=== PATIENT | female | born 1990 | race African-American/Black ===

== ENCOUNTER 2021-03-22 06:09 | Emergency (ER) | payer MEDICAID ==
[~2021-03-22] VITALS: Ht 167.6 cm; Wt 129.3 kg
--- NOTE | 2021-03-22 06:13 | NUR ---
Patient to ER bed 4 to gown for evaluation. Side rails up. Report given to BORIS PRIDE.
--- NOTE | 2021-03-22 06:16 | NUR ---
DR. MARINO AT BEDSIDE FOR EVALUATION.
[2021-03-22 06:19] VITALS: BP_SYST 129
--- NOTE | 2021-03-22 06:26 | NUR ---
PT ARRIVED TO ER WITH A COMPLAINT OF LEFT SIDED LUMPS ON HER BREAST. PT STATES SHE STARTED HAVING THEM ON 2020. WENT TO THE ER AND THEY SENT HER HOME WITH [facility] SAYING IT WILL GO AWAY. PT STARTED HAVING FLAREUPS AGAIN AND WANTS TO KNOW WHAT THEY ARE. 11/07 PAIN. A&OX4
[2021-03-22 06:51] LABS: BASOPHILS % (AUTO) 0.5 % (0.0-2.0); EOSINOPHILS # (AUTO) 0.2 K/uL (0.0-0.4); EOSINOPHILS % (AUTO) 2.3 % (0.0-4.0); HEMATOCRIT 36.7 % (36-48); HEMOGLOBIN 12.2 g/dL (12.0-16.0); LYMPHOCYTES # (AUTO) 2.6 K/uL (1.0-5.5); LYMPHOCYTES % (AUTO) 30.5 % (20.5-51.5); MEAN CORPUSCULAR HEMOGLOBIN 28 pg (27-31); MEAN CORPUSCULAR HGB CONC 33 % (32-36); MEAN CORPUSCULAR VOLUME 84 fL (79.0-98.0); MONOCYTES # (AUTO) 0.6 K/uL (0.0-1.0); MONOCYTES % (AUTO) 7.6 % (1.7-9.3); NEUTROPHILS % (AUTO) 59.1 % (40.0-70.0); PLATELET COUNT (AUTO) 272 K/uL (130-430); RED CELL DISTRIBUTION WIDTH 15.6 % (9.0-15.0); WHITE BLOOD COUNT (AUTO) 8.4 K/uL (4.8-10.8)
[2021-03-22 07:06] LABS: CALCIUM 8.4 mg/dL (8.4-11.0); CREATININE 1.01 mg/dL (0.55-1.30); POTASSIUM 4.1 mmol/L (3.5-5.1)
[2021-03-22] MEDS ORDERED: LIDOCAINE JECT 2% PF 100 MG/5ML SYRINGE ONE (07:08)
[2021-03-22 07:10] LABS: ALBUMIN 3.2 g/dL (3.4-4.8); C-REACTIVE PROTEIN QUANT 9.7 mg/dL (0-0.5); TOTAL BILIRUBIN 0.1 mg/dL (0.0-1.0)
--- NOTE | 2021-03-22 07:13 | NUR ---
PT LAYING IN BED, IN NAD. RESP EVEN AND UNLABORED, DENIES ANY PAIN AT THIS TIME. VSS.
[2021-03-22] MEDS ORDERED: IBUP-1969 PO (11:03)
[2021-03-22 11:40] VITALS: BP_SYST 133
--- NOTE | 2021-03-22 11:40 | NUR ---
Patient given written and verbal discharge instructions and verbalizes understanding. ER MD discussed with patient the results and treatment provided. Patient in stable condition. ID arm band removed. IV catheter removed intact and dressing applied, no active bleeding. Rx of IBUPROFEN given. Patient educated on pain management and to follow up with PMD. Pain Scale . Opportunity for questions provided and answered. Medication side effect fact sheet provided.
== END 2021-03-22 11:40 | disposition home or self-care (01) ==
LOC: SED 06:09
DX: N63.0 Unspecified lump in unspecified breast (principal)
CPT/HCPCS: 36415; 76642; 80053; 83605; 85025; 86140; 99284